=== PATIENT | male | born 1945 | race Caucasian/White ===

== ENCOUNTER → 2021-01-23 | Outpatient (CLI) | payer OTHER, MEDICARE, SELFPAY ==
--- NOTE | 2021-01-23 | LES_PTH ---
PATIENT: GABINO GILL LOC: [facility] U#:[id number] AGE/SX: 75/M ROOM: RE01/23/[address]: Dr. Justus Slaughter MD : 1945 BED: DIS: 01/23/2021 SPEC #: [id number] RECD: 01/23/21 18:10 STATUS: KEVIN REVioletta #: [id number] PRIYANKA: 01/23/21 00:[address]: Justus Slaughter DEPT: SURGICAL PATHOLOGY RECD BY: Kinsey Dumont ENTERED: 01/24/21 09:54 SP TYPE: Lesion OTHR DR: Out of Town Doctor Tissues: Skin of external ear, NOS Procedures: Surgery Specimen Level IV HEADER OPERATION: Right ear lesion removal PRE-OP DIAGNOSIS: Nonhealing lesion right ear TISSUE SUBMITTED: Right ear lesion, verrucous type lesion MICROSCOPIC DIAGNOSIS Right ear lesion, biopsy: Inflamed benign verrucous keratosis. Negative for malignancy. SJ:aditya 01/25/2021 MICROSCOPIC DESCRIPTION Slides are reviewed. GROSS DESCRIPTION Received in fixative is one container labeled with the patient's name and designated right ear lesion. The specimen consists of a piece of gill-white skin measuring 1 x 0.6 cm and up to 0.3 cm in thickness. There is a raised brownish-black lesion on the surface measuring 0.5 cm in greatest dimension. The specimen is inked, serially sectioned and submitted entirely in one cassette. / PANFILO:aditya 01/24/2021 TC:5 CPT: 27944
== END | disposition home or self-care (01) ==
PROVIDERS: Visit Provider Otolaryngology
DX: L98.9 Disorder of the skin and subcutaneous tissue, unspecified (principal)
CPT/HCPCS: 88305